=== PATIENT | female | born 1995 | race Caucasian/White ===

== ENCOUNTER 2021-02-27 20:08 | Observation (INO) | payer OTHER ==
[~2021-02-27] VITALS: Ht 175.3 cm; Wt 112.3 kg
[2021-02-28 03:02] LABS: HEMOGLOBIN 13.9 gm/dl (12.3-15.3); RED BLOOD COUNT 4.92 M/UL (4.00-5.10)
[2021-02-28 03:17] LABS: BUN/CREATININE RATIO 8 (0-10)
== END 2021-02-28 18:06 | disposition home or self-care (01) ==
LOC: M/S 20:08 → MED SURG 4 22:13
PROVIDERS: Internal Medicine; ADMIT Internal Medicine
DX: U07.1 COVID-19 (principal); J12.82 Pneumonia due to coronavirus disease 2019
CPT/HCPCS: 36415; 36600; 80048; 82803; 85025; G0378; G0379; J1650